=== PATIENT | female | born 1970 | race Caucasian/White ===

== ENCOUNTER 2019-07-12 09:28 | Inpatient (IN) | payer BC ==
[2019-07-12] MEDS ORDERED: ALBUTEROL NEBULIZED 7.5 MG, IPRATROPIUM NEBULIZED 0.5 MG, SODIUM CHLORIDE 0.9% NEBULIZ ... INHALATION ONE ×3 (09:52)
[2019-07-12] MEDS ORDERED: methylPREDNISolone SOD SUCCI 125 MG/2 ML VIAL IV STA (09:53)
--- NOTE | 2019-07-12 09:55 | ED ---
General Adult HPI - General Chief complaint: Shortness of Breath Stated complaint: SOB Time Seen by Provider: 07/12/19 09:30 Source: patient, RN notes reviewed Mode of arrival: ambulatory Limitations: no limitations - History of Present Illness Initial comments: This is a 48-year-old female presents emergency Department complaining of difficulty breathing for the last few days. Patient states her in [place] and they came down with an upper thigh infection and since then her breathing is gotten worse. Patient states 2 days ago she went to the hospital but she did not stay because she did not have insurance to cover. Patient states the breathing got worse today [place]. Patient denies any fever chills. Patient states she is coughing quite a bit but not coughing up a lot of sputum. Patient denies any chest pain or palpitations. Patient denies any swelling to legs or calf tenderness. Patient is a smoker. - Related Data Home Medications Medication Instructions Recorded Confirmed Fluticasone Propionate 110 Mcg 2 puff INHALATION RT-BID PRN 07/12/19 07/12/19 [Flovent 110 Mcg Inhaler (Bulk)] Ibuprofen [Advil] 400 mg PO Q6HR PRN 07/12/19 07/12/19 L.acidoph,Paracasei, B.lactis 1 cap PO DAILY 07/12/19 07/12/19 [Probiotic] Allergies Allergy/AdvReac Type Severity Reaction Status Date / Time No Known Allergies Allergy Verified 07/12/19 09:40 Review of Systems ROS Statement: Those systems with pertinent positive or pertinent negative responses have been documented in the HPI. ROS Other: All systems not noted in ROS Statement are negative. Past Medical History Past Medical History: No Reported History History of Any Multi-Drug Resistant Organisms: None Reported Past Surgical History: No Surgical Hx Reported Past Psychological History: No Psychological Hx Reported Smoking Status: Current every day smoker Past Alcohol Use History: None Reported Past Drug Use History: None Reported General Exam - General Exam Comments Initial Comments: GENERAL: Patient is well-developed and well-nourished. Patient is nontoxic and well- hydrated and is in mild distress. ENT: Neck is soft and supple. No significant lymphadenopathy is noted. Oropharynx is clear. Moist mucous membranes. Neck has full range of motion without eliciting any pain. EYES: The sclera were anicteric and conjunctiva were pink and moist. Extraocular movements were intact and pupils were equal round and reactive to light. Eyelids were unremarkable. PULMONARY: Patient has expiratory wheezing diffusely CARDIOVASCULAR: There is a regular rate and rhythm without any murmurs gallops or rubs. ABDOMEN: Soft and nontender with normal bowel sounds. No palpable organomegaly was noted. There is no palpable pulsatile mass. SKIN: Skin is clear with no lesions or rashes and otherwise unremarkable. NEUROLOGIC: Patient is alert and oriented x3. Cranial nerves II through XII are grossly intact. Motor and sensory are also intact. Normal speech, volume and content. Symmetrical smile. MUSCULOSKELETAL: Normal extremities with adequate strength and full range of motion. No lower extremity swelling or edema. No calf tenderness. LYMPHATICS: No significant lymphadenopathy is noted PSYCHIATRIC: Normal psychiatric evaluation. Limitations: no limitations Course Vital Signs 07/12/19 07/12/19 07/12/19 09:31 10:17 10:18 Temperature 97.9 F 97.8 F Pulse Rate 100 94 Respiratory 26 H 20 20 Rate Blood Pressure 118/59 110/74 O2 Sat by Pulse 90 L 95 Oximetry 07/12/19 07/12/19 10:19 10:53 Temperature Pulse Rate 84 88 Respiratory Rate Blood Pressure O2 Sat by Pulse Oximetry Medical Decision Making - Medical Decision Making EKG shows normal sinus rhythm at 94 bpm MD interval is 116 QRS is 76 QT interval 3:30 QTC is 4:15. Patient's EKG shows no ST segment elevation or depression or T wave abnormalities are noted. Patient received 3 breathing treatments emergency department as well as steroids. Patient on reevaluation stated she felt better however she was still diffusely wheezy and did not feel comfortable going home. I spoke with [facility] hospitalist and they agreed to admit the patient a dmitted the patient wrote admitting orders I continued breathing treatments on the floor as well as steroids before. Chest x-ray shows no acute abnormality. I discussed smoking cessation for greater than 3 minutes. The risks of smoking were discussed with the patient including but not limited to risks of cancer, stroke, coronary artery disease and COPD. Also discussed with the patient were multiple methods of quitting smoking. Lastly we discussed the financial costs of smoking. - Lab Data Result diagrams: 07/12/19 10:00 07/12/19 10:00 Lab Results 07/12/19 07/12/19 07/12/19 Range/Units 10:00 10:00 10:00 WBC 9.6 (3.8-10.6) k/uL RBC 4.48 (3.80-5.40) m/uL Hgb 15.0 (11.4-16.0) gm/dL Hct 44.0 (34.0-46.0) % MCV 98.4 (80.0-100.0) fL MCH 33.5 (25.0-35.0) pg MCHC 34.0 (31.0-37.0) g/dL RDW 13.1 (11.5-15.5) % Plt Count 219 (150-450) k/uL Neutrophils % 74 % Lymphocytes % 17 % Monocytes % 6 % Eosinophils % 1 % Basophils % 1 % Neutrophils # 7.1 (1.3-7.7) k/uL Lymphocytes # 1.6 (1.0-4.8) k/uL Monocytes # 0.6 (0-1.0) k/uL Eosinophils # 0.1 (0-0.7) k/uL Basophils # 0.1 (0-0.2) k/uL PT (9.0-12.0) sec INR (<1.2) APTT (22.0-30.0) sec Sodium 140 (137-145) mmol/L Potassium 4.1 (3.5-5.1) mmol/L Chloride 104 (98-107) mmol/L Carbon Dioxide 26 (22-30) mmol/L Anion Gap 10 mmol/L BUN 16 (7-17) mg/dL Creatinine 0.78 (0.52-1.04) mg/dL Est GFR (CKD-EPI)AfAm >90 (>60 ml/min/1.73 sqM) Est GFR (CKD-EPI)NonAf >90 (>60 ml/min/1.73 sqM) Glucose 101 H (74-99) mg/dL Calcium 9.5 (8.4-10.2) mg/dL Magnesium 1.9 (1.6-2.3) mg/dL Total Bilirubin 0.6 (0.2-1.3) mg/dL AST 32 (14-36) U/L ALT 38 (9-52) U/L Alkaline Phosphatase 72 (38-126) U/L Troponin I (0.000-0.034) ng/mL NT-Pro-B Natriuret Pep 149 pg/mL Total Protein 7.1 (6.3-8.2) g/dL Albumin 4.3 (3.5-5.0) g/dL 07/12/19 07/12/19 Range/Units 10:00 10:00 WBC (3.8-10.6) k/uL RBC (3.80-5.40) m/uL Hgb (11.4-16.0) gm/dL Hct (34.0-46.0) % MCV (80.0-100.0) fL MCH (25.0-35.0) pg MCHC (31.0-37.0) g/dL RDW (11.5-15.5) % Plt Count (150-450) k/uL Neutrophils % % Lymphocytes % % Monocytes % % Eosinophils % % Basophils % % Neutrophils # (1.3-7.7) k/uL Lymphocytes # (1.0-4.8) k/uL Monocytes # (0-1.0) k/uL Eosinophils # (0-0.7) k/uL Basophils # (0-0.2) k/uL PT 10.1 (9.0-12.0) sec INR 0.9 (<1.2) APTT 23.9 (22.0-30.0) sec Sodium (137-145) mmol/L Potassium (3.5-5.1) mmol/L Chloride (98-107) mmol/L Carbon Dioxide (22-30) mmol/L Anion Gap mmol/L BUN (7-17) mg/dL Creatinine (0.52-1.04) mg/dL Est GFR (CKD-EPI)AfAm (>60 ml/min/1.73 sqM) Est GFR (CKD-EPI)NonAf (>60 ml/min/1.73 sqM) Glucose (74-99) mg/dL Calcium (8.4-10.2) mg/dL Magnesium (1.6-2.3) mg/dL Total Bilirubin (0.2-1.3) mg/dL AST (14-36) U/L ALT (9-52) U/L Alkaline Phosphatase (38-126) U/L Troponin I <0.012 (0.000-0.034) ng/mL NT-Pro-B Natriuret Pep pg/mL Total Protein (6.3-8.2) g/dL Albumin (3.5-5.0) g/dL Critical Care Time Critical Care Time: Yes Total Critical Care Time: 35 Disposition Clinical Impression: Acute bronchospasm Disposition: ADMITTED IP TO THIS HOSP Referrals: Nonstaff,Physician [Primary Care Provider] - 1-2 days Time of Disposition: 11:27
[2019-07-12 10:15] LABS: Basophils # (A) 0.1 k/uL (0-0.2); Basophils % (A) 1 %; Eosinophils # (A) 0.1 k/uL (0-0.7); Eosinophils % (A) 1 %; Lymphocytes # (A) 1.6 k/uL (1.0-4.8); Lymphocytes % (A) 17 %; MCH 33.5 pg (25.0-35.0); MCV 98.4 fL (80.0-100.0); Mean Platelet Volume 6.7; Monocytes # (A) 0.6 k/uL (0-1.0); Monocytes % (A) 6 %; Neutrophils # (A) 7.1 k/uL (1.3-7.7); Neutrophils % (A) 74 %; Platelet Count 219 k/uL (150-450); RBC 4.48 m/uL (3.80-5.40); RDW 13.1 % (11.5-15.5); WBC 9.6 k/uL (3.8-10.6)
[2019-07-12 10:34] LABS: ALT 38 U/L (9-52); AST 32 U/L (14-36); African American GFR (CKD) >90 (>60 ml/min/1.73 sqM); Albumin 4.3 g/dL (3.5-5.0); Alkaline Phosphatase 72 U/L (38-126); Anion Gap 10 mmol/L; Blood Urea Nitrogen 16 mg/dL (7-17); Calcium 9.5 mg/dL (8.4-10.2); Carbon Dioxide 26 mmol/L (22-30); Chloride 104 mmol/L (98-107); Glucose 101 mg/dL (74-99); Magnesium 1.9 mg/dL (1.6-2.3); Potassium 4.1 mmol/L (3.5-5.1); Sodium 140 mmol/L (137-145); Total Bilirubin 0.6 mg/dL (0.2-1.3); Total Protein 7.1 g/dL (6.3-8.2)
[2019-07-12 10:41] LABS: INR 0.9 (<1.2); Partial Thromboplastin Time 23.9 sec (22.0-30.0); Prothrombin Time 10.1 sec (9.0-12.0)
--- NOTE | 2019-07-12 11:07 | XR ---
EXAMINATION TYPE: XR chest 2V DATE OF EXAM: 07/12/2019 COMPARISON: NONE HISTORY: Shortness of breath TECHNIQUE: Frontal and lateral views of the chest are obtained. FINDINGS: Scattered senescent parenchymal changes noted. Hyperinflation compatible with COPD. No evidence for infiltrate. No evidence for atelectasis. Heart size is stable. Mediastinal structures are stable and grossly unremarkable. No evidence for hilar prominence. Degenerative changes dorsal spine. IMPRESSION: 1. No evidence for acute pulmonary disease.
[2019-07-12] MEDS ORDERED: SODIUM CHLORIDE 0.9% 1,000 ML IV ONE (11:27)
[2019-07-12] MEDS: IPRATROPIUM-ALBUTEROL 3 ML NEB INHALATION SCH ×3 (12:32→19:13)
[2019-07-12 12:47] VITALS: BMI 26.2
--- NOTE | 2019-07-12 12:58 | P.CNPUL ---
History of Present Illness Consult date: 07/12/19 Requesting physician: Maddy Patten Reason for consult: dyspnea Chief complaint: Shortness of breath, chest tightness, wheezing History of present illness: This is a very pleasant 48-year-old female patient with no previous medical history. She resides in [place]. She was recently traveling to [place] to visit her son [place] border. She developed upper respiratory infection and worsening shortness of breath and stopped in the emergency room and was given updraft treatments and an inhaler. [place] ended up in the emergency room with continued worsening shortness of breath, loose nonproductive cough, chest heaviness and wheezing. She does have a 36 year 1-1-1/2 pack per day smoking history. She had not been diagnosed with COPD in the past. No asthma. No home oxygen. No home inhalers. Chest x-ray revealed no acute pulmonary process. Evidence of hyperinflation compatible with COPD. White count 9.6. Hemoglobin 15.0. Creatinine 0.78. Troponin negative times one. ProBNP 149. She is seen today in consultation on the regular medical floor. She is awake and alert. Mild pulmonary distress. Feeling a bit better today compared to yesterday. Maintaining O2 saturations in the 90s on 2 L/m per nasal cannula. 89% on room air. She's been afebrile. Hemodynamically stable. Review of Systems REVIEW OF SYSTEMS: CONSTITUTIONAL: Denies any recent significant weight loss or weight gain. EYES: Denies change in vision. EARS, NOSE, MOUTH, THROAT: Denies headaches, denies sore throat. CARDIOVASCULAR: Denies chest pain, palpitations or syncopal episodes. RESPIRATORY: Positive for shortness of breath, cough, congestion no hemoptysis. GASTROINTESTINAL: Denies change in appetite, denies abdominal pain GENITOURINARY: Denies hematuria, denies infections. MUSKULOSKELETAL: Denies pain, denies swelling. INTEGUMENTARY: Denies rash, denies eczema. NEUROLOGICAL: Denies recent memory loss, no recent seizure activity. PSYCHIATRIC: Denies anxiety, denies depression. HEMATOLOGIC/LYMPHATIC: Denies anemia, denies enlarged lymph nodes. Past Medical History Past Medical History: No Reported History Additional Past Medical History / Comment(s): Bronchitis in past, frequent diarrhea. History of Any Multi-Drug Resistant Organisms: None Reported Past Surgical History: Tonsillectomy Additional Past Surgical History / Comment(s): Perineum tear repair Past Anesthesia/Blood Transfusion Reactions: No Reported Reaction, Motion Sickness Smoking Status: Current every day smoker - Past Family History Father Family Medical History: Coronary Artery Disease (CAD) Additional Family Medical History / Comment(s): Father at the age of 27 yrs from a type of cardiac disease, thought possibly d/t cocaine. Mother Additional Family Medical History / Comment(s): Mother had bariatric surgery. Medications and Allergies Home Medications Medication Instructions Recorded Confirmed Type Fluticasone Propionate 110 Mcg 2 puff INHALATION RT-BID PRN 07/12/19 07/12/19 History [Flovent 110 Mcg Inhaler (Bulk)] Ibuprofen [Advil] 400 mg PO Q6HR PRN 07/12/19 07/12/19 History L.acidoph,Paracasei, B.lactis 1 cap PO DAILY 07/12/19 07/12/19 History [Probiotic] Allergies Allergy/AdvReac Type Severity Reaction Status Date / Time No Known Allergies Allergy Verified 07/12/19 09:40 Physical Exam Vitals: Vital Signs Temp Pulse Resp BP Pulse Ox 07/12/19 11:46 90 22 104/63 89 L 07/12/19 11:45 22 07/12/19 10:53 88 07/12/19 10:19 84 07/12/19 10:18 97.8 F 94 20 110/74 95 07/12/19 10:17 20 07/12/19 09:31 97.9 F 100 26 H 118/59 90 L Intake and Output 07/11/19 07/12/19 07/12/19 22:59 06:59 14:59 Other: Weight 58.967 kg GENERAL EXAM: Alert, pleasant 48-year-old female patient, appears older than stated age, on 2 L, comfortable in no apparent distress. HEAD: Normocephalic. EYES: Normal reaction of pupils, equal size. NOSE: Clear with pink turbinates. THROAT: No erythema or exudates. NECK: No masses, no JVD. CHEST: No chest wall deformity. LUNGS: Equal air entry with bilateral end expiratory wheeze, scattered rhonchi, diminished. CVS: S1 and S2 normal with no audible murmur, regular rhythm. ABDOMEN: No hepatosplenomegaly, normal bowel sounds, no guarding or rigidity. SPINE: No scoliosis or deformity SKIN: No rashes CENTRAL NERVOUS SYSTEM: No focal deficits, tone is normal in all 4 extremities. EXTREMITIES: There is no peripheral edema. No clubbing, no cyanosis. Peripheral pulses are intact. Results - Laboratory Findings CBC and BMP: 07/12/19 10:00 07/12/19 10:00 PT/INR, D-dimer PT 10.1 sec (9.0-12.0) 07/12/19 10:00 INR 0.9 (<1.2) 07/12/19 10:00 Abnormal lab findings: Abnormal Labs 07/12/19 10:00 Glucose 101 H - Diagnostic Findings Chest x-ray: image reviewed Assessment and Plan Assessment: Impression: #1 Acute exacerbation of chronic obstructive pulmonary disease, complicated by upper respiratory infection. #2 Acute hypoxic respiratory failure secondary to above. #3 Chronic and ongoing tobacco dependence of 36 years at 1 to 1-1/2 packs per day. Plan: The patient was seen and evaluated by Dr. Cordova. Chest x-ray and labs reviewed. We will initiate DuoNeb inhalations every 4 hours, Pulmicort and Perf oromist inhalations every 12 hours, IV Solu-Medrol 60 mg every 6 hours, empiric antibiotics in the form of doxycycline. Add a NicoDerm patch. She is educated regarding the importance of complete smoking cessation. Heparin for DVT prophylaxis. Protonix for GI prophylaxis. We will continue to follow make further recommendations based on her clinical status. I, the cosigning physician, performed a history & physical examination of the patient. Lungs sounds with bilateral end expiratory wheeze, few scattered rhonchi, diminished. Maintaining good O2 saturations in the 90s on 2 L/m per nasal cannula. I discussed the assessment and plan of care with my nurse practitioner, Doris Tian. I attest to the above consultation as dictated by her. Time with Patient: Greater than 30
[2019-07-12] MEDS: NICOTINE 21MG/24HR PATCH TRANSDERM SCH (13:08)
[2019-07-12] MEDS: DOXYCYCLINE 100 MG CAP PO SCH ×2 (13:18→23:32)
[2019-07-12] MEDS: PANTOPRAZOLE 40 MG TABLET PO SCH (13:18)
[2019-07-12] MEDS: HEPARIN SODIUM,PORCINE 5,000 UNIT/ML 1 ML VIAL SQ SCH ×2 (13:21→23:32)
[2019-07-12] MEDS: methylPREDNISolone SOD SUCCI 125 MG/2 ML VIAL IV SCH ×2 (16:18→23:32)
[2019-07-12] MEDS: BUDESONIDE 1 MG/2 ML NEBU INHALATION SCH (19:13)
[2019-07-12] MEDS: FORMOTEROL FUMARATE 20 MCG/2 ML NEBU INHALATION SCH (19:13)
[2019-07-12] MEDS ORDERED: BUDESONIDE 0.5 MG/2 ML NEBU INHALATION SCH (20:00)
[2019-07-12] MEDS: INSULIN ASPART (NovoLOG) 100 UNIT/ML VIAL SQ SCH (23:34)
[2019-07-12 23:36] LABS: Glucose,Whole Blood 126 mg/dL (75-99)
[2019-07-13] MEDS: IPRATROPIUM-ALBUTEROL 3 ML NEB INHALATION SCH ×7 (00:45→22:48)
[2019-07-13] MEDS: methylPREDNISolone SOD SUCCI 125 MG/2 ML VIAL IV SCH ×3 (05:45→17:37)
[2019-07-13 06:01] LABS: Glucose,Whole Blood 122 mg/dL (75-99)
[2019-07-13] MEDS: INSULIN ASPART (NovoLOG) 100 UNIT/ML VIAL SQ SCH ×3 (06:15→17:37)
[2019-07-13] MEDS: DOXYCYCLINE 100 MG CAP PO SCH ×2 (07:26→22:11)
[2019-07-13] MEDS: LACTOBACILLUS ACIDOPH & BULGAR 1 EACH PACKET PO SCH (07:26)
[2019-07-13] MEDS: PANTOPRAZOLE 40 MG TABLET PO SCH (07:27)
[2019-07-13] MEDS: HEPARIN SODIUM,PORCINE 5,000 UNIT/ML 1 ML VIAL SQ SCH ×2 (07:29→15:38)
[2019-07-13] MEDS: NICOTINE 21MG/24HR PATCH TRANSDERM SCH (07:29)
[2019-07-13] MEDS: BUDESONIDE 1 MG/2 ML NEBU INHALATION SCH ×2 (08:20→19:24)
[2019-07-13] MEDS: FORMOTEROL FUMARATE 20 MCG/2 ML NEBU INHALATION SCH ×2 (08:20→19:23)
--- NOTE | 2019-07-13 10:30 | P.HPIM ---
History of Present Illness H&P Date: 07/12/19 Chief Complaint: Shortness of breath Patient is a 48-year-old female without significant past medical history except ongoing nicotine addiction came to ER with the complaints of difficulty breathing. Patient is was only from [place]. Patient was traveling to [place] to visit her son. Patient had upper at his infection which is not getting better. Last Tuesday patient was admitted to [facility] in [place] and was being treated for URI and bronchospasm. Patient [place] due to incidence issues. Patient continues to have shortness of breath, cough without much sputum production and wheezing. And continue smoke 1-1-1/2 pack per day. No fever no chills. No nausea vomiting or abdominal pain. No history of COPD. Chest x-ray showed no acute cardiopulmonary process. Evidence of hyperinflation compatible with COPD. BNP 149, troponin 1 negative. Pulse ox was 89% on room air on admission. Currently saturating well on nasal cannula oxygen. Review of Systems Constitutional: Patient denies any fever or chills . No generalized weakness or weight loss. Abdomen: Patient denied nausea vomiting and diarrhea and abdominal pain. Cardiovascular: Patient denies any chest pain or short of breath no palpitations. Respiratory: Patient does have cough with sputum production. Patient has shortness of breath Neurologic: Patient denied any numbness or tingling headache. Musculoskeletal: Patient denies any complaints of joint swelling or deformity. Skin: Negative Psychiatric: Negative Endocrine: No heat or cold intolerance. No recent weight gain. Genitourinary: No dysuria or hematuria. All other 14 point ROS negative except the above Past Medical History Past Medical History: No Reported History History of Any Multi-Drug Resistant Organisms: None Reported Past Surgical History: No Surgical Hx Reported Past Psychological History: No Psychological Hx Reported Smoking Status: Current every day smoker Past Alcohol Use History: None Reported Past Drug Use History: None Reported - Past Family History Father Family Medical History: Coronary Artery Disease (CAD) Additional Family Medical History / Comment(s): Father at the age of 27 yrs from a type of cardiac disease, thought possibly d/t cocaine. Mother Additional Family Medical History / Comment(s): Mother had bariatric surgery. Medications and Allergies Home Medications Medication Instructions Recorded Confirmed Type Fluticasone Propionate 110 Mcg 2 puff INHALATION RT-BID PRN 07/12/19 07/12/19 History [Flovent 110 Mcg Inhaler (Bulk)] Ibuprofen [Advil] 400 mg PO Q6HR PRN 07/12/19 07/12/19 History L.acidoph,Paracasei, B.lactis 1 cap PO DAILY 07/12/19 07/12/19 History [Probiotic] Allergies Allergy/AdvReac Type Severity Reaction Status Date / Time No Known Allergies Allergy Verified 07/12/19 09:40 Physical Exam Vitals: Vital Signs Temp Pulse Resp BP Pulse Ox 07/12/19 11:46 90 22 104/63 89 L 07/12/19 11:45 22 07/12/19 10:53 88 07/12/19 10:19 84 07/12/19 10:18 97.8 F 94 20 110/74 95 07/12/19 10:17 20 07/12/19 09:31 97.9 F 100 26 H 118/59 90 L Intake and Output 07/11/19 07/12/19 07/12/19 22:59 06:59 14:59 Other: Weight 58.967 kg PHYSICAL EXAMINATION: Patient is lying in the bed comfortably, no acute distress, awake alert and orie nted.. HEENT: Normocephalic. Neck is supple. Pupils reactive. Nostrils clear. Oral cavity is moist. Ears reveal no drainage. Neck reveals no JVD, carotid bruits, or thyromegaly. CHEST EXAMINATION: Trachea is central. Symmetrical expansion. Bilateral diffuse rhonchi and wheezing. CARDIAC: Normal S1, S2 with no gallops. No murmurs ABDOMEN: Soft. Bowel sounds normal. No organomegaly. No abdominal bruits. Extremities: reveal no edema. No clubbing or cyanosis Neurologically awake, alert, oriented x3 with well-coordinated movements. No focal deficits noted Skin: No rash or skin lesions. Psychiatric: Coperative. Nonsuicidal Musculoskeletal: No joint swelling or deformity. Normal range of motion. Results CBC & Chem 7: 07/12/19 10:00 07/12/19 10:00 Labs: Abnormal Lab Results - Last 24 Hours (Table) 07/12/19 Range/Units 10:00 Glucose 101 H (74-99) mg/dL Thrombosis Risk Factor Assmnt - DVT/VTE Prophylaxis DVT/VTE Prophylaxis: Pharmacologic Prophylaxis ordered Assessment and Plan Assessment: Acute COPD exacerbation Acute tracheobronchitis Acute hypoxic respiratory failure secondary to COPD exacerbation Ongoing nicotine addiction 1-1/2 pack per day DVT prophylaxis Plan: patient be continued on DuoNeb's, IV steroids, Pulmicort and Perforomist was added. Pulmonary is following. Continue oxygen therapy and gradually tapered off to room air. Smoking cessation has been counseled extensively. Further recommendations based on the clinical course. Time with Patient: Greater than 30
--- NOTE | 2019-07-13 11:32 | P.PN ---
Subjective Progress Note Date: 07/13/19 Principal diagnosis: Acute exacerbation of chronic obstructive pulmonary disease. This is a very pleasant 48-year-old female patient with no previous medical history. She resides in [place]. She was recently traveling to [place] to visit her son [place]. She developed upper respiratory infection and worsening shortness of breath and stopped in the emergency room and was given updraft treatments and an inhaler. [place] ended up in the emergency room with continued worsening shortness of breath, loose nonproductive cough, chest heaviness and wheezing. She does have a 36 year 1-1-1/2 pack per day smoking history. She had not been diagnosed with COPD in the past. No asthma. No home oxygen. No home inhalers. Chest x-ray revealed no acute pulmonary process. Evidence of hyperinflation compatible with COPD. White count 9.6. Hemoglobin 15.0. Creatinine 0.78. Troponin negative times one. ProBNP 149. She is seen today in consultation on the regular medical floor. She is awake and alert. Mild pulmonary distress. Feeling a bit better today compared to yesterday. Maintaining O2 saturations in the 90s on 2 L/m per nasal cannula. 89% on room air. She's been afebrile. Hemodynamically stable. The patient is seen today 07/13/2019 on follow-up in the regular medical floor. She is awake and alert in no acute distress. She is breathing a bit easier today as compared to yesterday. Not quite back to her baseline. Still with O2 saturations 87% on room air. Recovers into the 90s on 2 L/m per nasal cannula. Her main complaint is of fatigue. She did not sleep well last night. She is continued on DuoNeb inhalations, Pulmicort and Perforomist inhalations, IV Solu- Medrol. Antibiotics in the form of Vibramycin. NicoDerm patch is in place. Objective - Vital Signs Vital signs: Vital Signs Temp 98.0 F 07/13/19 04:40 Pulse 100 07/13/19 08:53 Resp 20 07/13/19 08:00 BP 141/78 07/13/19 04:40 Pulse Ox 87 L 07/13/19 10:10 Intake & Output 07/12/19 07/13/19 07/13/19 18:59 06:59 18:59 Intake Total 500 500 Balance 500 500 Weight 58.967 kg Intake: Oral 500 500 Other: Voiding Method Toilet Toilet Toilet # Voids 1 4 # Bowel Movements 0 - Exam GENERAL EXAM: Alert, pleasant 48-year-old female patient, on 2 L per minute per nasal cannula with O2 saturations in the 90s, comfortable in no apparent distress. HEAD: Normocephalic. EYES: Normal reaction of pupils, equal size. NOSE: Clear with pink turbinates. THROAT: No erythema or exudates. NECK: No masses, no JVD. CHEST: No chest wall deformity. LUNGS: Equal air entry with bilateral end expiratory wheeze, scattered rhonchi, diminished. CVS: S1 and S2 normal with no audible murmur, regular rhythm. ABDOMEN: No hepatosplenomegaly, normal bowel sounds, no guarding or rigidity. SPINE: No scoliosis or deformity SKIN: No rashes CENTRAL NERVOUS SYSTEM: No focal deficits, tone is normal in all 4 extremities. EXTREMITIES: There is no peripheral edema. No clubbing, no cyanosis. Peripheral pulses are intact. - Labs CBC & Chem 7: 07/12/19 10:00 07/12/19 10:00 Labs: Abnormal Lab Results - Last 24 Hours (Table) 07/12/19 07/13/19 Range/Units 23:33 05:59 POC Glucose (mg/dL) 126 H 122 H (75-99) mg/dL Assessment and Plan Assessment: Impression: #1 Acute exacerbation of chronic obstructive pulmonary disease, complicated by upper respiratory infection. #2 Acute hypoxic respiratory failure secondary to above. #3 Chronic and ongoing tobacco dependence of 36 years at 1 to 1-1/2 packs per day. Plan: The patient was seen and evaluated by Dr. Cordova. The patient continues to have O2 saturations in the 80s on room air. Recovers on 2 L nasal cannula into the 90s. We will continue DuoNeb inhalations every 4 hours, Pulmicort and Perforomist inhalations every 12 hours, IV Solu-Medrol 60 mg every 6 hours, empiric antibiotics in the form of doxycycline. NicoDerm patch in place. She is educated regarding the importance of complete smoking cessation. Heparin for DVT prophylaxis. Protonix for GI prophylaxis. We will continue to follow make further recommendations based on her clinical status. I, the cosigning physician, performed a history & physical examination of the patient. Lungs sounds with bilateral end expiratory wheeze, few scattered rhonchi, diminished. Maintaining good O2 saturations in the 90s on 2 L/m per nasal cannula. I discussed the assessment and plan of care with my nurse practitioner, Doris Tian. I attest to the above note as dictated by her.
[2019-07-13 11:59] LABS: Glucose,Whole Blood 128 mg/dL (75-99)
[2019-07-13 17:48] LABS: Glucose,Whole Blood 161 mg/dL (75-99)
[2019-07-14 00:11] LABS: Glucose,Whole Blood 129 mg/dL (75-99)
[2019-07-14] MEDS: INSULIN ASPART (NovoLOG) 100 UNIT/ML VIAL SQ SCH ×3 (00:15→13:02)
[2019-07-14] MEDS: HEPARIN SODIUM,PORCINE 5,000 UNIT/ML 1 ML VIAL SQ SCH ×3 (00:15→16:41)
[2019-07-14] MEDS: methylPREDNISolone SOD SUCCI 125 MG/2 ML VIAL IV SCH ×3 (00:15→13:02)
[2019-07-14] MEDS: IPRATROPIUM-ALBUTEROL 3 ML NEB INHALATION SCH ×6 (03:24→23:23)
[2019-07-14 05:55] LABS: Glucose,Whole Blood 119 mg/dL (75-99)
[2019-07-14] MEDS: BUDESONIDE 1 MG/2 ML NEBU INHALATION SCH ×2 (07:30→20:10)
[2019-07-14] MEDS: FORMOTEROL FUMARATE 20 MCG/2 ML NEBU INHALATION SCH ×2 (07:30→20:10)
[2019-07-14] MEDS: PANTOPRAZOLE 40 MG TABLET PO SCH (09:15)
[2019-07-14] MEDS: LACTOBACILLUS ACIDOPH & BULGAR 1 EACH PACKET PO SCH (09:15)
[2019-07-14] MEDS: DOXYCYCLINE 100 MG CAP PO SCH ×2 (09:15→21:18)
[2019-07-14] MEDS: NICOTINE 21MG/24HR PATCH TRANSDERM SCH (09:17)
[2019-07-14 12:30] LABS: Glucose,Whole Blood 146 mg/dL (75-99)
--- NOTE | 2019-07-14 13:47 | P.PN ---
Subjective Progress Note Date: 07/14/19 Principal diagnosis: Acute exacerbation of chronic obstructive pulmonary disease. This is a very pleasant 48-year-old female patient with no previous medical history. She resides in [place]. She was recently traveling to [place] to visit her [place]. She developed upper respiratory infection and worsening shortness of breath and stopped in the emergency room and was given updraft treatments and an inhaler. [place] ended up in the emergency room with continued worsening shortness of breath, loose nonproductive cough, chest heaviness and wheezing. She does have a 36 year 1-1-1/2 pack per day smoking history. She had not been diagnosed with COPD in the past. No asthma. No home oxygen. No home inhalers. Chest x-ray revealed no acute pulmonary process. Evidence of hyperinflation compatible with COPD. White count 9.6. Hemoglobin 15.0. Creatinine 0.78. Troponin negative times one. ProBNP 149. She is seen today in consultation on the regular medical floor. She is awake and alert. Mild pulmonary distress. Feeling a bit better today compared to yesterday. Maintaining O2 saturations in the 90s on 2 L/m per nasal cannula. 89% on room air. She's been afebrile. Hemodynamically stable. The patient is seen today 07/13/2019 on follow-up in the regular medical floor. She is awake and alert in no acute distress. She is breathing a bit easier today as compared to yesterday. Not quite back to her baseline. Still with O2 saturations 87% on room air. Recovers into the 90s on 2 L/m per nasal cannula. Her main complaint is of fatigue. She did not sleep well last night. She is continued on DuoNeb inhalations, Pulmicort and Perforomist inhalations, IV Solu- Medrol. Antibiotics in the form of Vibramycin. NicoDerm patch is in place. The patient is seen today 07/14/2019 in follow-up on the regular medical floor. She is improved today as compared to yesterday. Much less bronchospastic and wheezy. Nearly back to her baseline. She denies any worsening shortness of breath, cough or congestion. No chills or night sweats. She is requiring oxygen at 2 L/m per nasal cannula to maintain O2 saturations. She dropped to 88% on room air while ambulating. Blood culture reveals no growth. She is continued on DuoNeb inhalations, Pulmicort and Perforomist inhalations, IV Solu- Medrol. Antibiotics in the form of Vibramycin. NicoDerm patch is in place. Objective - Vital Signs Vital signs: Vital Signs Temp 97.8 F 07/14/19 13:40 Pulse 96 07/14/19 13:40 Resp 18 07/14/19 13:40 BP 112/71 07/14/19 13:40 Pulse Ox 94 L 07/14/19 13:40 Intake & Output 07/13/19 07/14/19 07/14/19 18:59 06:59 18:59 Intake Total 300 Balance 300 Intake: Oral 300 Other: Voiding Method Toilet Toilet # Voids 1 1 # Bowel Movements 0 - Exam GENERAL EXAM: Alert, pleasant 48-year-old female patient, on 2 L per minute per nasal cannula with O2 saturations in the 90s, comfortable in no apparent distress. HEAD: Normocephalic. EYES: Normal reaction of pupils, equal size. NOSE: Clear with pink turbinates. THROAT: No erythema or exudates. NECK: No masses, no JVD. CHEST: No chest wall deformity. LUNGS: Equal air entry with bilateral end expiratory wheeze, diminished. CVS: S1 and S2 normal with no audible murmur, regular rhythm. ABDOMEN: No hepatosplenomegaly, normal bowel sounds, no guarding or rigidity. SPINE: No scoliosis or deformity SKIN: No rashes CENTRAL NERVOUS SYSTEM: No focal deficits, tone is normal in all 4 extremities. EXTREMITIES: There is no peripheral edema. No clubbing, no cyanosis. Peripheral pulses are intact. - Labs CBC & Chem 7: 07/12/19 10:00 07/12/19 10:00 Labs: Abnormal Lab Results - Last 24 Hours (Table) 07/13/19 07/14/19 07/14/19 Range/Units 17:36 00:08 05:54 POC Glucose (mg/dL) 161 H 129 H 119 H (75-99) mg/dL 07/14/19 Range/Units 12:27 POC Glucose (mg/dL) 146 H (75-99) mg/dL Microbiology - Last 24 Hours (Table) 07/12/19 10:00 Blood Culture - Preliminary Blood No Growth after 48 hours Assessment and Plan Assessment: Impression: #1 Acute exacerbation of chronic obstructive pulmonary disease, complicated by upper respiratory infection. #2 Acute hypoxic respiratory failure secondary to above. #3 Chronic and ongoing tobacco dependence of 36 years at 1 to 1-1/2 packs per day. Plan: The patient was seen and evaluated by Dr. Cordova. The patient continues to have O2 saturations in the 80s on room air. Recovers on 2 L nasal cannula into the 90s. We'll need to be discharged on home oxygen. Complete prednisone burst and taper started at 40 mg daily 4 days, Symbicort, albuterol. She is again educated regarding the importance of complete smoking cessation. She'll follow- up with her PCP when she arrives home in [place]. I, the cosigning physician, performed a history & physical examination of the patient. Lungs sounds with bilateral end expiratory wheeze, diminished. Maintaining good O2 saturations in the 90s on 2 L/m per nasal cannula. I discussed the assessment and plan of care with my nurse practitioner, Doris Tian. I attest to the above note as dictated by her.
--- NOTE | 2019-07-15 00:07 | P.PN ---
Subjective Progress Note Date: 07/13/19 Principal diagnosis: Acute COPD exacerbation Patient is a 48-year-old female without significant past medical history except ongoing nicotine addiction came to ER with the complaints of difficulty breathing. Patient is was only from [place]. Patient was traveling to [place] to visit her son. Patient had upper at his infection which is not getting better. Last Tuesday patient was admitted to [facility] in [place] and was being treated for URI and bronchospasm. [place] issues. Patient continues to have shortness of breath, cough without much sputum production and wheezing. And continue smoke 1-1-1/2 pack per day. No fever no chills. No nausea vomiting or abdominal pain. No history of COPD. Chest x-ray showed no acute cardiopulmonary process. Evidence of hyperinflation compatible with COPD. BNP 149, troponin 1 negative. Pulse ox was 89% on room air on admission. Currently saturating well on nasal cannula oxygen. 07/13/2019 Patient says that her breathing is better. Wheezing improved as well. Otherwise O2 saturation is 87% on room air and he still having exertional dyspnea. Will be continued on IV steroids, DuoNeb's and antibiotics in the form of doxycycline. Pulmonary is following. No chest pain. No nausea vomiting or abdominal pain. No diarrhea or dysuria. Current medications reviewed. Objective - Vital Signs Vital signs: Vital Signs Temp 98.6 F 07/13/19 21:27 Pulse 95 07/13/19 21:27 Resp 16 07/13/19 21:27 BP 120/75 07/13/19 21:27 Pulse Ox 94 L 07/13/19 21:27 Intake & Output 07/13/19 07/13/19 07/14/19 06:59 18:59 06:59 Intake Total 500 300 Balance 500 300 Intake: Oral 500 300 Other: Voiding Method Toilet Toilet # Voids 4 1 2 # Bowel Movements 0 0 - Exam PHYSICAL EXAMINATION: Patient is lying in the bed comfortably, no acute distress, awake alert and oriented.. HEENT: Normocephalic. Neck is supple. Pupils reactive. Nostrils clear. Oral cavity is moist. Ears reveal no drainage. Neck reveals no JVD, carotid bruits, or thyromegaly. CHEST EXAMINATION: Trachea is central. Symmetrical expansion. Expiratory wheez ing and scattered rhonchi. CARDIAC: Normal S1, S2 with no gallops. No murmurs ABDOMEN: Soft. Bowel sounds normal. No organomegaly. No abdominal bruits. Extremities: reveal no edema. No clubbing or cyanosis Neurologically awake, alert, oriented x3 with well-coordinated movements. No focal deficits noted Skin: No rash or skin lesions. Psychiatric: Coperative. Nonsuicidal Musculoskeletal: No joint swelling or deformity. Normal range of motion. - Labs CBC & Chem 7: 07/12/19 10:00 07/12/19 10:00 Labs: Abnormal Lab Results - Last 24 Hours (Table) 07/12/19 07/13/19 07/13/19 Range/Units 23:33 05:59 11:56 POC Glucose (mg/dL) 126 H 122 H 128 H (75-99) mg/dL 07/13/19 Range/Units 17:36 POC Glucose (mg/dL) 161 H (75-99) mg/dL Microbiology - Last 24 Hours (Table) 07/12/19 10:00 Blood Culture - Preliminary Blood No Growth after 24 hours Assessment and Plan Assessment: Acute COPD exacerbation Acute tracheobronchitis Acute hypoxic respiratory failure secondary to COPD exacerbation Ongoing nicotine addiction 1-1/2 pack per day DVT prophylaxis Plan: patient be continued on DuoNeb's, IV steroids, Pulmicort and Perforomist was added. Pulmonary is following. Continue oxygen therapy and gradually tapered off to room air. Smoking cessation has been counseled extensively. Further recommendations based on the clinical course. Time with Patient: Greater than 30
--- NOTE | 2019-07-15 00:09 | P.PN ---
Subjective Progress Note Date: 07/14/19 Principal diagnosis: Acute COPD exacerbation Patient is a 48-year-old female without significant past medical history except ongoing nicotine addiction came to ER with the complaints of difficulty breathing. Patient is was only from [place]. Patient was traveling to [place] to visit her son. Patient had upper at his infection which is not getting better. Last Tuesday patient was admitted to [facility] in [place] and was being treated for URI and bronchospasm. [place] back to [place] due to incidence issues. Patient continues to have shortness of breath, cough without much sputum production and wheezing. And continue smoke 1-1-1/2 pack per day. No fever no chills. No nausea vomiting or abdominal pain. No history of COPD. Chest x-ray showed no acute cardiopulmonary process. Evidence of hyperinflation compatible with COPD. BNP 149, troponin 1 negative. Pulse ox was 89% on room air on admission. Currently saturating well on nasal cannula oxygen. 07/13/2019 Patient says that her breathing is better. Wheezing improved as well. Otherwise O2 saturation is 87% on room air and he still having exertional dyspnea. Will be continued on IV steroids, DuoNeb's and antibiotics in the form of doxycycline. Pulmonary is following. No chest pain. No nausea vomiting or abdominal pain. No diarrhea or dysuria. 07/14/2019 Patient is still desaturating on room air and exertional dyspnea. Home oxygen is being arranged by [facility]. Continued on IV steroids, DuoNeb's and antibiotics. Pulmonary is on board. No other acute overnight issues. Current medications reviewed. Objective - Vital Signs Vital signs: Vital Signs Temp 97.8 F 07/14/19 13:40 Pulse 96 07/14/19 13:40 Resp 18 07/14/19 13:40 BP 112/71 07/14/19 13:40 Pulse Ox 94 L 07/14/19 13:40 Intake & Output 07/13/19 07/14/19 07/14/19 18:59 06:59 18:59 Intake Total 300 900 Balance 300 900 Intake: Oral 300 900 Other: Voiding Method Toilet Toilet # Voids 1 1 2 # Bowel Movements 0 - Exam PHYSICAL EXAMINATION: Patient is lying in the bed comfortably, no acute distress, awake alert and oriented.. HEENT: Normocephalic. Neck is supple. Pupils reactive. Nostrils clear. Oral cavity is moist. Ears reveal no drainage. Neck reveals no JVD, carotid bruits, or thyromegaly. CHEST EXAMINATION: Trachea is central. Symmetrical expansion. Expiratory wheezing and scattered rhonchi. CARDIAC: Normal S1, S2 with no gallops. No murmurs ABDOMEN: Soft. Bowel sounds normal. No organomegaly. No abdominal bruits. Extremities: reveal no edema. No clubbing or cyanosis Neurologically awake, alert, oriented x3 with well-coordinated movements. No focal deficits noted Skin: No rash or skin lesions. Psychiatric: Coperative. Nonsuicidal Musculoskeletal: No joint swelling or deformity. Normal range of motion. - Labs CBC & Chem 7: 07/12/19 10:00 07/12/19 10:00 Labs: Abnormal Lab Results - Last 24 Hours (Table) 07/13/19 07/14/19 07/14/19 Range/Units 17:36 00:08 05:54 POC Glucose (mg/dL) 161 H 129 H 119 H (75-99) mg/dL 07/14/19 Range/Units 12:27 POC Glucose (mg/dL) 146 H (75-99) mg/dL Microbiology - Last 24 Hours (Table) 07/12/19 10:00 Blood Culture - Preliminary Blood No Growth after 48 hours Assessment and Plan Assessment: Acute COPD exacerbation Acute tracheobronchitis Acute hypoxic respiratory failure secondary to COPD exacerbation Ongoing nicotine addiction 1-1/2 pack per day DVT prophylaxis Plan: patient be continued on DuoNeb's, IV steroids, Pulmicort and Perforomist was added. Pulmonary is following. Continue oxygen therapy and gradually tapered off to room air. Patient will need home oxygen. Smoking cessation has been counseled extensively. Further recommendations based on the clinical course. Time with Patient: Greater than 30
[2019-07-15] MEDS: HEPARIN SODIUM,PORCINE 5,000 UNIT/ML 1 ML VIAL SQ SCH ×3 (00:23→15:25)
[2019-07-15] MEDS: IPRATROPIUM-ALBUTEROL 3 ML NEB INHALATION SCH ×6 (04:34→23:18)
[2019-07-15] MEDS: FORMOTEROL FUMARATE 20 MCG/2 ML NEBU INHALATION SCH ×2 (07:47→20:02)
[2019-07-15] MEDS: BUDESONIDE 1 MG/2 ML NEBU INHALATION SCH ×2 (07:47→20:02)
[2019-07-15] MEDS: predniSONE 10 MG TAB PO SCH (07:48)
[2019-07-15] MEDS: NICOTINE 21MG/24HR PATCH TRANSDERM SCH (07:48)
[2019-07-15] MEDS: PANTOPRAZOLE 40 MG TABLET PO SCH (07:48)
[2019-07-15] MEDS: DOXYCYCLINE 100 MG CAP PO SCH ×2 (07:49→22:07)
[2019-07-15] MEDS: LACTOBACILLUS ACIDOPH & BULGAR 1 EACH PACKET PO SCH (08:03)
--- NOTE | 2019-07-15 12:58 | P.PN ---
Subjective Progress Note Date: 07/15/19 Principal diagnosis: Acute exacerbation of chronic obstructive pulmonary disease. Acute hypoxic respiratory failure secondary to COPD exacerbation. This is a very pleasant 48-year-old female patient with no previous medical history. She resides in [place]. She was recently traveling to [place] to visit her [place]. She developed upper respiratory infection and worsening shortness of breath and stopped in the emergency room and was given updraft treatments and an inhaler. [place] ended up in the emergency room with continued worsening shortness of breath, loose nonproductive cough, chest heaviness and wheezing. She does have a 36 year 1-1-1/2 pack per day smoking history. She had not been diagnosed with COPD in the past. No asthma. No home oxygen. No home inhalers. Chest x-ray revealed no acute pulmonary process. Evidence of hyperinflation compatible with COPD. White count 9.6. Hemoglobin 15.0. Creatinine 0.78. Troponin negative times one. ProBNP 149. She is seen today in consultation on the regular medical floor. She is awake and alert. Mild pulmonary distress. Feeling a bit better today compared to yesterday. Maintaining O2 saturations in the 90s on 2 L/m per nasal cannula. 89% on room air. She's been afebrile. Hemodynamically stable. The patient is seen today 07/13/2019 on follow-up in the regular medical floor. She is awake and alert in no acute distress. She is breathing a bit easier today as compared to yesterday. Not quite back to her baseline. Still with O2 saturations 87% on room air. Recovers into the 90s on 2 L/m per nasal cannula. Her main complaint is of fatigue. She did not sleep well last night. She is continued on DuoNeb inhalations, Pulmicort and Perforomist inhalations, IV Solu- Medrol. Antibiotics in the form of Vibramycin. NicoDerm patch is in place. The patient is seen today 07/14/2019 in follow-up on the regular medical floor. She is improved today as compared to yesterday. Much less bronchospastic and wheezy. Nearly back to her baseline. She denies any worsening shortness of breath, cough or congestion. No chills or night sweats. She is requiring oxygen at 2 L/m per nasal cannula to maintain O2 saturations. She dropped to 88% on room air while ambulating. Blood culture reveals no growth. She is continued on DuoNeb inhalations, Pulmicort and Perforomist inhalations, IV Solu- Medrol. Antibiotics in the form of Vibramycin. NicoDerm patch is in place. Patient was reevaluated today on 07/15/2019, patient was supposed to be discharged home yesterday on oxygen, however there was an issue with insurance, and the fact that she lives in [place], hence she had to be kept as inpatient. Patient needs oxygen as she qualified with the saturation down to 88% with walking. Clinically however the patient is feeling better, breathing a lot easier, less cough and less wheezing and less shortness of breath, much improved over the last few days. D-dimer today was normal. Hence no need for a CT angiogram of the chest. Patient was complaining earlier of increase pulse rate as she walks Objective - Vital Signs Vital signs: Vital Signs Temp 98.0 F 07/15/19 05:46 Pulse 80 07/15/19 11:44 Resp 16 07/15/19 08:00 BP 116/71 07/15/19 05:46 Pulse Ox 92 L 07/15/19 07:46 Intake & Output 07/14/19 07/15/19 07/15/19 18:59 06:59 18:59 Intake Total 900 750 400 Balance 900 750 400 Intake: Oral 900 750 400 Other: Voiding Method Toilet # Voids 2 2 - Exam Physical Exam: Revealed 48-year-old female pleasant in no distress on 2 L nasal cannula Head: Atraumatic normocephalic. HEENT:[Neck is supple.] [No neck masses.] [No thyromegaly.] [No JVD.] Chest: [Diminished breath sounds at the bases wheezing on forced expiratory maneuver. Symmetrical chest expansion noted chest wall tenderness Cardiac Exam: [Normal S1 and S2, no S3 gallop, no murmur.] Abdomen: [Soft, nontender, no megaly, no rebound, no guarding, normal bowel sounds.] Extremities: [No clubbing, no edema, no cyanosis.] Neurological Exam: [No focal neurologic deficit.] Alert oriented 3. Psychiatric: Normal mood affect and normal mental status examination. Skin: No rashes. Lymphatics: No lymphadenopathy - Labs CBC & Chem 7: 07/12/19 10:00 07/12/19 10:00 Labs: Microbiology - Last 24 Hours (Table) 07/12/19 10:00 Blood Culture - Preliminary Blood No Growth after 72 hours Assessment and Plan Assessment: #1 Acute exacerbation of chronic obstructive pulmonary disease, complicated by upper respiratory infection. #2 Acute hypoxic respiratory failure secondary to above. #3 Chronic and ongoing tobacco dependence of 36 years at 1 to 1-1/2 packs per day. Recommendation: Continue present treatment plan, and hopefully arrange for home oxygen tomorrow and discharge planning tomorrow. Follow-up on outpatient basis with her primary care physician in [place]. Patient should be discharged home on prednisone burst and taper starting at 40 mg daily Symbicort, albuterol, and doxycycline Time with Patient: Less than 30
[2019-07-15 15:27] VITALS: RESP 18
--- NOTE | 2019-07-15 23:58 | P.PN ---
Subjective Progress Note Date: 07/15/19 Principal diagnosis: Acute COPD exacerbation Patient is a 48-year-old female without significant past medical history except ongoing nicotine addiction came to ER with the complaints of difficulty breathing. Patient is was only from [place]. Patient was traveling to [place] to visit her son. Patient had upper at his infection which is not getting better. Last Tuesday patient was admitted to [facility] in [place] and was being treated for URI and bronchospasm. [place] back [place] due [place] issues. Patient continues to have shortness of breath, cough without much sputum production and wheezing. And continue smoke 1-1-1/2 pack per day. No fever no chills. No nausea vomiting or abdominal pain. No history of COPD. Chest x-ray showed no acute cardiopulmonary process. Evidence of hyperinflation compatible with COPD. BNP 149, troponin 1 negative. Pulse ox was 89% on room air on admission. Currently saturating well on nasal cannula oxygen. 07/13/2019 Patient says that her breathing is better. Wheezing improved as well. Otherwise O2 saturation is 87% on room air and he still having exertional dyspnea. Will be continued on IV steroids, DuoNeb's and antibiotics in the form of doxycycline. Pulmonary is following. No chest pain. No nausea vomiting or abdominal pain. No diarrhea or dysuria. 07/14/2019 Patient is still desaturating on room air and exertional dyspnea. Home oxygen is being arranged by [facility]. Continued on IV steroids, DuoNeb's and antibiotics. Pulmonary is on board. No other acute overnight issues. 07/15/2019 Patient is still desaturating with ambulation and requiring home oxygen. Home oxygen supply could not be admitted yesterday due to incidence issues since the patient is from [place]. Otherwise patient is being continued on IV steroids, DuoNeb's and antibiotics. Pulmonary is following. Anticipate discharge tomorrow. Current medications reviewed. Objective - Vital Signs Vital signs: Vital Signs Temp 98.1 F 07/15/19 15:00 Pulse 76 07/15/19 16:26 Resp 18 07/15/19 15:00 BP 108/73 07/15/19 15:00 Pulse Ox 95 07/15/19 15:00 Intake & Output 07/14/19 07/15/19 07/15/19 18:59 06:59 18:59 Intake Total 900 750 800 Balance 900 750 800 Intake: Oral 900 750 800 Other: Voiding Method Toilet # Voids 2 2 1 - Exam PHYSICAL EXAMINATION: Patient is lying in the bed comfortably, no acute distress, awake alert and oriented.. HEENT: Normocephalic. Neck is supple. Pupils reactive. Nostrils clear. Oral cavity is moist. Ears reveal no drainage. Neck reveals no JVD, carotid bruits, or thyromegaly. CHEST EXAMINATION: Trachea is central. Symmetrical expansion. Expiratory wheezing and scattered rhonchi. CARDIAC: Normal S1, S2 with no gallops. No murmurs ABDOMEN: Soft. Bowel sounds normal. No organomegaly. No abdominal bruits. Extremities: reveal no edema. No clubbing or cyanosis Neurologically awake, alert, oriented x3 with well-coordinated movements. No focal deficits noted Skin: No rash or skin lesions. Psychiatric: Coperative. Nonsuicidal Musculoskeletal: No joint swelling or deformity. Normal range of motion. - Labs CBC & Chem 7: 07/12/19 10:00 07/12/19 10:00 Labs: Microbiology - Last 24 Hours (Table) 07/12/19 10:00 Blood Culture - Preliminary Blood No Growth after 72 hours Assessment and Plan Assessment: Acute COPD exacerbation Acute tracheobronchitis Acute hypoxic respiratory failure secondary to COPD exacerbation Ongoing nicotine addiction 1-1/2 pack per day DVT prophylaxis Plan: patient be continued on DuoNeb's, IV steroids, Pulmicort and Perforomist was added. Pulmonary is following. Continue oxygen therapy and gradually tapered off to room air. Patient will need home oxygen. Smoking cessation has been counseled extensively. Further recommendations based on the clinical course. Time with Patient: Greater than 30
[2019-07-16] MEDS: HEPARIN SODIUM,PORCINE 5,000 UNIT/ML 1 ML VIAL SQ SCH ×3 (00:24→15:03)
[2019-07-16] MEDS: IPRATROPIUM-ALBUTEROL 3 ML NEB INHALATION SCH ×4 (03:27→16:25)
[2019-07-16 06:04] VITALS: BP 103/67; TEMP 97.6
[2019-07-16] MEDS: PANTOPRAZOLE 40 MG TABLET PO SCH (07:54)
[2019-07-16] MEDS: predniSONE 10 MG TAB PO SCH (07:54)
[2019-07-16] MEDS: NICOTINE 21MG/24HR PATCH TRANSDERM SCH (07:54)
[2019-07-16] MEDS: LACTOBACILLUS ACIDOPH & BULGAR 1 EACH PACKET PO SCH (07:54)
[2019-07-16] MEDS: DOXYCYCLINE 100 MG CAP PO SCH (07:54)
[2019-07-16] MEDS: BUDESONIDE 1 MG/2 ML NEBU INHALATION SCH (08:31)
[2019-07-16] MEDS: FORMOTEROL FUMARATE 20 MCG/2 ML NEBU INHALATION SCH (08:31)
--- NOTE | 2019-07-16 12:44 | P.PN ---
Subjective Progress Note Date: 07/16/19 Principal diagnosis: Acute exacerbation of chronic obstructive pulmonary disease This is a very pleasant 48-year-old female patient with no previous medical history. She resides in [place]. She was recently traveling to [place] She developed upper respiratory infection and worsening shortness of breath and stopped in the emergency room and was given updraft treatments and an inhaler. [place] ended up in the emergency room with continued worsening shortness of breath, loose nonproductive cough, chest heaviness and wheezing. She does have a 36 year 1-1-1/2 pack per day smoking history. She had not been diagnosed with COPD in the past. No asthma. No home oxygen. No home inhalers. Chest x-ray revealed no acute pulmonary process. Evidence of hyperinflation compatible with COPD. White count 9.6. Hemoglobin 15.0. Creatinine 0.78. Troponin negative times one. ProBNP 149. She is seen today in consultation on the regular medical floor. She is awake and alert. Mild pulmonary distress. Feeling a bit better today compared to yesterday. Maintaining O2 saturations in the 90s on 2 L/m per nasal cannula. 89% on room air. She's been afebrile. Hemodynamically stable. The patient is seen today 07/13/2019 on follow-up in the regular medical floor. She is awake and alert in no acute distress. She is breathing a bit easier today as compared to yesterday. Not quite back to her baseline. Still with O2 saturations 87% on room air. Recovers into the 90s on 2 L/m per nasal cannula. Her main complaint is of fatigue. She did not sleep well last night. She is continued on DuoNeb inhalations, Pulmicort and Perforomist inhalations, IV Solu- Medrol. Antibiotics in the form of Vibramycin. NicoDerm patch is in place. The patient is seen today 07/14/2019 in follow-up on the regular medical floor. She is improved today as compared to yesterday. Much less bronchospastic and wheezy. Nearly back to her baseline. She denies any worsening shortness of breath, cough or congestion. No chills or night sweats. She is requiring oxygen at 2 L/m per nasal cannula to maintain O2 saturations. She dropped to 88% on room air while ambulating. Blood culture reveals no growth. She is continued on DuoNeb inhalations, Pulmicort and Perforomist inhalations, IV Solu- Medrol. Antibiotics in the form of Vibramycin. NicoDerm patch is in place. Patient was reevaluated today on 07/15/2019, patient was supposed to be discharged home yesterday on oxygen, however there was an issue with insurance, and the fact that she lives in [place], hence she had to be kept as inpatient. Patient needs oxygen as she qualified with the saturation down to 88% with walking. Clinically however the patient is feeling better, breathing a lot easier, less cough and less wheezing and less shortness of breath, much improved over the last few days. D-dimer today was normal. Hence no need for a CT angiogram of the chest. Patient was complaining earlier of increase pulse rate as she walks On 07/08/2019 patient seen in follow-up on medical surgical floor. She is sitting up in bed, in no acute distress, she remains on 2 L of oxygen, the pulse ox of 94%, patient does desaturate on room air with walking, down to 80% and as such qualifies for home oxygen. Has some mild exertional dyspnea and some scattered wheezes, overall improving, breathing easier, no fever or chills. D- dimer was low at 0.29, suggesting absence of thromboembolic disease. Patient has been treated with steroids, nebulized bronchodilators, and doxycycline, she is improving, and can be discharged home today. Objective - Vital Signs Vital signs: Vital Signs Temp 97.6 F 07/16/19 05:00 Pulse 117 H 07/16/19 09:18 Resp 18 07/16/19 05:00 BP 103/67 07/16/19 05:00 Pulse Ox 88 L 07/16/19 09:18 Intake & Output 07/15/19 07/16/19 07/16/19 18:59 06:59 18:59 Intake Total 1200 900 Balance 1200 900 Intake: Oral 1200 900 Other: Voiding Method Toilet Toilet # Voids 1 2 # Bowel Movements 0 - Exam GENERAL EXAM: Alert, pleasant, 40-year-old white female, on 2 L of oxygen, with a pulse ox of 94%, comfortable in no apparent distress. HEAD: Normocephalic/atraumatic. EYES: Normal reaction of pupils, equal size. Conjunctiva pink, sclera white. NOSE: Clear with pink turbinates. THROAT: No erythema or exudates. NECK: No masses, no JVD, no thyroid enlargement, no adenopathy. CHEST: No chest wall deformity. Symmetrical expansion. LUNGS: Equal air entry with scattered wheezes CVS: Regular rate and rhythm, normal S1 and S2, no gallops, no murmurs, no rubs ABDOMEN: Soft, nontender. No hepatosplenomegaly, normal bowel sounds, no guarding or rigidity. EXTREMITIES: No clubbing, no edema, no cyanosis, 2+ pulses and upper and lower extremities. MUSCULOSKELETAL: Muscle strength and tone normal. SPINE: No scoliosis or deformity SKIN: No rashes CENTRAL NERVOUS SYSTEM: Alert and oriented -3. No focal deficits, tone is normal in all 4 extremities. PSYCHIATRIC: Alert and oriented -3. Appropriate affect. Intact judgment and insight. - Labs CBC & Chem 7: 07/12/19 10:00 07/12/19 10:00 Labs: Microbiology - Last 24 Hours (Table) 07/12/19 10:00 Blood Culture - Preliminary Blood No Growth after 96 hours Assessment and Plan Plan: Assessment: #1 Acute exacerbation of chronic obstructive pulmonary disease, complicated by upper respiratory infection. #2 Acute hypoxic respiratory failure secondary to above. #3 Chronic and ongoing tobacco dependence of 36 years at 1 to 1-1/2 packs per day. Plan: Patient is doing well, improving, breathing easier, increase activity as tolerated, patient does qualify for home oxygen, and oxygen delivery has been arranged by discharge planning, from pulmonary perspective patient is stable for discharge home today, and she will need to follow up with her primary care physician in [place] and possibly become established with a business development specialist in [place]. I performed a history & physical examination of the patient and discussed their management with my nurse practitioner, Pearl Weber. I reviewed the nurse practitioner's note and agree with the documented findings and plan of care. Lung sounds are positive for diffuse wheezes throughout the lung diaz. The findings and the impression was discussed with the patient. I attest to the documentation by the nurse practitioner. Time with Patient: Less than 30
[2019-07-16 16:38] VITALS: PULSE 98
--- NOTE | 2019-07-16 23:27 | DS ---
DISCHARGE SUMMARY DATE OF SERVICE: 07/16/2019 FINAL DIAGNOSES: 1. Chronic obstructive pulmonary disease, acute exacerbation, with acute purulent tracheobronchitis with acute hypoxic respiratory failure. 2. Continued ongoing nicotine dependence. 3. Elevated random blood sugar, possibly secondary to IV steroids. 4. History of bronchitis in the past. 5. Chronic hypoxic respiratory failure requiring 2 L nasal cannula oxygen at home. DISCHARGE DISPOSITION: The patient will be discharged in stable condition with guarded prognosis. HISTORY OF PRESENT ILLNESS: This 48-year-old woman with a past medical history of multiple medical problems is originally from [place] traveling from [place], admitted with COPD, acute exacerbation, and multiple other complex medical issues. The patient was treated with bronchodilators and steroids. The patient improved significantly. Dr. Zambrano saw the patient and cleared the patient for discharge. Home oxygen has been arranged because of the above-mentioned reasons. On exam, vitals are stable. CARDIOVASCULAR SYSTEM: S1, S2 muffled. ABDOMEN: Soft. NERVOUS SYSTEM: No focal deficit. DISCHARGE ADVICE AND MEDICATIONS: 1. Diet is cardiac. 2. Activity limited until followup. 3. Follow up with primary physician in 2 to 3 days. 4. Follow up with vasc tech as recommended. 5. Probiotic p.o. daily. 6. Combivent 1 puff q.i.d. 7. Habitrol 21 daily. 8. Prednisone taper: 40 mg daily for 3 days; 30 mg daily for 3 days; 20 mg daily for 3 days; 10 mg daily for 3 days. 9. Protonix 40 mg daily. 10.Symbicort 160/4.5 one puff b.i.d. 11.Vibramycin 100 mg p.o. b.i.d. for 5 days. 12.Home oxygen 2 L nasal cannula as recommended. Once again, the patient will be discharged in stable condition with guarded prognosis. MMODL / IJN: [id number] /
== END 2019-07-16 17:01 | disposition home or self-care (01) | DRG 190 ==
LOC: EC 09:28 → 4MS4W 11:27
PROVIDERS: ADMIT Hospitalist; ATTEND Hospitalist
DX: J44.1 Chronic obstructive pulmonary disease with (acute) exacerbation (principal); J96.21 Acute and chronic respiratory failure with hypoxia; J20.9 Acute bronchitis, unspecified; F17.200 Nicotine dependence, unspecified, uncomplicated; J44.0 Chronic obstructive pulmonary disease with (acute) lower respiratory infection; Z82.49 Family history of ischemic heart disease and other diseases of the circulatory system; Z99.81 Dependence on supplemental oxygen
CPT/HCPCS: 36415; 71046; 80053; 83735; 83880; 84484; 85025; 85379; 85610; 85730; 87040; 93005; 94640; 94644; 94760; 96374; 99291; 99406